=== PATIENT | male | born 1990 | race Caucasian/White ===

== ENCOUNTER 2016-07-19 06:15 | Emergency (ER) | payer SELFPAY ==
--- NOTE | 2016-07-19 06:53 | ER Document Report ---
ED General - General Mode of Arrival: Ambulatory Information source: Patient TRAVEL OUTSIDE OF THE [place] IN LAST 30 DAYS: No - HPI Patient complains to provider of: Abdominal, anal, and penile pain Associated symptoms: Other - see notes above <BEATRICE GARDUNO - Last Filed: 07/19/16 09:42> <APVAN ZENG - Last Filed: 07/19/16 10:32> - General Chief Complaint: Constipation Stated Complaint: CONSTIPATION,UNABLE TO URINATE Time Seen by Provider: 07/19/16 06:24 Notes: 26 year old male with history of GERD, anxiety, hemorrhoids, anal fissure, and chronic constipation presents to the ED complaining of abdominal, anal, and penile pain that started this morning. Patient reports that he "can't take the pain." Patient reports that he has not been able to void secondary to the pain. Patient hasn't had a bowel movement in 7 days, but reports the last time he had to strain excessively before anything passed. Patient sometimes takes medication to help move his bowels, but states that he takes it too late. ( BEATRICE GARDUNO) - Related Data Allergies/Adverse Reactions: cephalexin monohydrate [From Keflex] Allergy (Intermediate, Verified 01/20/16 11 :07) ciprofloxacin [Ciprofloxacin] Allergy (Intermediate, Verified 01/20/16 11:07) Penicillins Allergy (Intermediate, Verified 01/20/16 11:07) Past Medical History - General Information source: Patient - Social History Smoking Status: Current Every Day Smoker Frequency of alcohol use: None Drug Abuse: None Family History: CAD - mother, CVA - grandmother from, DM - grandma and grandpa, Hypertension - mother, Other - MS mother Pulmonary Medical History: Reports: Hx Pneumonia GI Medical History: Reports: Hx Gastroesophageal Reflux Disease, Hx Hiatal Hernia, Other - hemorrhoids and anal fissure Psychiatric Medical History: Reports: Hx Anxiety Past Surgical History: Reports: Hx Abdominal Surgery, Other - Throat biopsy - Immunizations Immunizations up to date: Yes Hx Diphtheria, Pertussis, Tetanus Vaccination: Yes - 2010 <BEATRICE GARDUNO - Last Filed: 07/19/16 09:42> Review of Systems - Review of Systems Constitutional: No symptoms reported EENT: No symptoms reported Cardiovascular: No symptoms reported Respiratory: No symptoms reported Gastrointestinal: See HPI, Abdominal pain, Constipation, Other - anal pain Genitourinary: See HPI, Retention Male Genitourinary: See HPI, Other - penile pain Musculoskeletal: No symptoms reported Skin: No symptoms reported Hematologic/Lymphatic: No symptoms reported Neurological/Psychological: No symptoms reported -: Yes All other systems reviewed and negative <BEATRICE AGRDUNO - Last Filed: 07/19/16 09:42> Physical Exam - General General appearance: Alert In distress: None - HEENT Head: Normocephalic, Atraumatic Eyes: Normal Extraocular movements intact: Yes Pupils: PERRL - Respiratory Respiratory status: No respiratory distress - Cardiovascular Rhythm: Regular - Abdominal Inspection: Normal Distension: No distension - Rectal Tenderness: Yes Hemorrhoids: None - Back Back: Normal - Extremities General upper extremity: Normal inspection, Normal ROM General lower extremity: Normal inspection, Normal ROM - Neurological Neuro grossly intact: Yes - Psychological Associated symptoms: Agitated - Skin Skin Temperature: Warm Skin Moisture: Dry Skin Color: Normal <BEATRICE GARDUNO - Last Filed: 07/19/16 09:42> <PAVAN ZENG - Last Filed: 07/19/16 10:32> - Vital signs Vitals: Temp Pulse Resp BP Pulse Ox 98.7 F 77 16 130/97 H 97 07/19/16 06:20 07/19/16 06:20 07/19/16 06:20 07/19/16 06:20 07/19/16 06:20 - Rectal Notes: Soft stool present around the anal area. Presence of skin tags, but no anal fissure or hemorrhoids present. (BEATRICE GARDUNO) Digital rectal exam shows firm stool in the rectum, attempts to break it up caused emotional crying, sobbing, and shaking all over. (PAVAN ZENG) Course - Laboratory Result Diagrams: 07/19/16 06:56 07/19/16 06:56 <BEATRICE GARDUNO - Last Filed: 07/19/16 09:42> - Laboratory Result Diagrams: 07/19/16 06:56 07/19/16 06:56 <PAVAN ZENG - Last Filed: 07/19/16 10:32> - Re-evaluation Re-evalutation: 07/19/16 10:29 The patient was given a small amount enema but would not hold it. He did pass one small piece of firm stool. After this, a digital rectal exam was done showing hard stool, he was unable to tolerate any attempts to break it up. After this he refused to allow any more the enema to be given. He is also unwilling to drink the mag citrate. (PAVAN ZENG) - Vital Signs Vital signs: Temp Pulse Resp BP Pulse Ox 98.7 F 77 16 130/97 H 97 07/19/16 06:20 07/19/16 06:20 07/19/16 06:20 07/19/16 06:20 07/19/16 06:20 - Laboratory Laboratory results interpreted by me: 07/19/16 07/19/16 06:56 06:56 WBC 15.5 H RBC 3.63 L Hgb 11.8 L Hct 34.8 L Plt Count 512 H Seg Neutrophils % 78.5 H Absolute Neutrophils 12.2 H Creatinine 0.51 L Discharge <BEATRICE GARDUNO - Last Filed: 07/19/16 09:42> <PAVAN ZENG - Last Filed: 07/19/16 10:32> - Discharge Clinical Impression: Constipation Qualifiers: Constipation type: unspecified constipation type Qualified Code(s): K59.00 - Constipation, unspecified Condition: Stable Disposition: HOME, SELF-CARE Additional Instructions: Constipation: Constipation is a common problem. It is especially likely as you get older. Constipation is a common cause of abdominal pain, but sometimes causes no symptoms at all. Causes of constipation include certain medications, dehydration, diets, inactivity, and low-fiber intake. Rarely, it can be a symptom of underlying disease. The physician has evaluated you for this. Avoid constipation by eating a diet high in fiber, fruits, and vegetables. Drink plenty of liquids. Get regular exercise. If possible, avoid constipating medicines like narcotic pain medication. Some vitamin tablets can cause constipation. Stool softeners may be needed for difficult cases. An excellent stool softener is Konsyl which is available at [facility], and [facility] drug store. Just add a teaspoon to a glass of pineapple or orange juice daily or twice a day if needed. Laxatives are useful for occasional constipation. You should use them only when necessary. Too-frequent use can make your bowels dependent on them. Some over the counter laxatives available without prescription are: Milk of Magnesia, 1-2 tablespoons twice a day Dulcolax, 5 mg pill or 10 mg suppository. Citrate of Magnesia, 4-5 ounces a day for a day or two For acute constipation, Fleet's Enemas and Dulcolax suppositories are helpful. Chronic, long term care social worker use of laxatives or enemas is not a good idea. Your bowel may become dependant on them. You do not need to have a bowel movement every day. Many people do fine with a bowel movement every three or four days. You should call your doctor or return for re-evaluation if you pass blood in the stool, or if you develop fever or increasing abdominal pain. //////////////////////////////////////////////////////////////////////////////// //////////////////////////////////////////////////////////////////////////////// ////////////////// Take 1 dose of MiraLAX every day. Drink lots of water every day. Drink 5 ounces of citrate of magnesia daily for the next 1-2 days. Follow-up with a local medical doctor if not improving. RETURN TO THE EMERGENCY ROOM IF ANY NEW OR WORSENING SYMPTOMS. Scribe Attestation: 07/19/16 10:32 I personally performed the services described in the documentation, reviewed and edited the documentation which was dictated to the scribe in my presence, and it accurately records my words and actions. (PAVAN ZENG) Scribe Documentation - Scribe Written by Rachel:: Rachel John, 07/19/2016 0708 acting as scribe for :: Jen <BEATRICE GARDUNO - Last Filed: 07/19/16 09:42>
[2016-07-19 07:15] LABS: ABSOLUTE BASOPHILS # (AUTO) 0.1 10^3/uL (0.0-0.2); ABSOLUTE EOSINOPHILS # (AUTO) 0.1 10^3/uL (0.0-0.6); ABSOLUTE LYMPHOCYTES (AUTO) 2.1 10^3/uL (0.5-4.7); ABSOLUTE MONOCYTES (AUTO) 1.1 10^3/uL (0.1-1.4); ABSOLUTE NEUT (AUTO) 12.2 10^3/uL (1.7-8.2); BASOPHILS % (AUTO) 0.4 % (0-2); EOSINOPHILS % (AUTO) 0.5 % (0-6); HEMATOCRIT 34.8 % (37.9-51.0); HEMOGLOBIN 11.8 g/dL (13.5-17.0); HGB HCT DIFFERENCE 0.6; LYMPHOCYTES % (AUTO) 13.4 % (13-45); MEAN CORPUSCULAR HEMOGLOBIN 32.4 pg (27.0-33.4); MEAN CORPUSCULAR HGB CONC 33.8 g/dL (32.0-36.0); MEAN CORPUSCULAR VOLUME 96 fl (80-97); MONOCYTES % (AUTO) 7.2 % (3-13); RED BLOOD COUNT 3.63 10^6/uL (4.35-5.55); RED CELL DISTRIBUTION WIDTH 13.1 % (11.5-14.0); SEGMENTED NEUTROPHILS % (AUTO) 78.5 % (42-78); WHITE BLOOD COUNT 15.5 10^3/uL (4.0-10.5)
[2016-07-19 07:27] LABS: ALANINE AMINOTRANSFERASE 34 U/L (21-72); ALBUMIN 3.7 g/dL (3.5-5.0); ALKALINE PHOSPHATASE 117 U/L (38-126); ANION GAP 11 (5-19); ASPARTATE AMINO TRANSFERASE 24 U/L (17-59); BILIRUBIN,DIRECT 0.4 mg/dL (0.0-0.4); BILIRUBIN,TOTAL 0.4 mg/dL (0.2-1.3); BLOOD UREA NITROGEN 10 mg/dL (7-20); CALCIUM 9.5 mg/dL (8.4-10.2); CARBON DIOXIDE 28 mmol/L (22-30); CHLORIDE 103 mmol/L (98-107); CREATININE RESULT 0.51 mg/dL (0.52-1.25); GLUCOSE 98 mg/dL (75-110); POTASSIUM 4.4 mmol/L (3.6-5.0); SODIUM 141.5 mmol/L (137-145)
[2016-07-19 07:34] LABS: APPEARANCE,URINE CLEAR; BILIRUBIN,URINE NEGATIVE (NEGATIVE); GLUCOSE, URINE NEGATIVE (NEGATIVE); KETONES,URINE NEGATIVE (NEGATIVE); LEUKOCYTE ESTERASE,URINE NEGATIVE (NEGATIVE); NITRITE,URINE NEGATIVE (NEGATIVE); PROTEIN,URINE NEGATIVE (NEGATIVE); URINE SPECIFIC GRAVITY 1.014; UROBILINOGEN,URINE NEGATIVE mg/dL (<2.0)
[2016-07-19] MEDS ORDERED: MORPHINE SULFATE 10 MG/ML INJ IM ONE (08:01)
[2016-07-19] MEDS ORDERED: DIPHENHYDRAMINE HCL 50 MG/ML VIAL IM ONE (08:01)
[2016-07-19] MEDS ORDERED: MINERAL OIL 30 ML UDCUP PR ONE (08:02)
[2016-07-19] MEDS ORDERED: MAGNESIUM CITRATE 296 ML BOTTLE PO ONE (08:40)
[2016-07-19 11:07] VITALS: BP 148/93
== END 2016-07-19 10:58 | disposition home or self-care (01) ==
LOC: ER 06:15
DX: K59.00 Constipation, unspecified (principal); R10.9 Unspecified abdominal pain; N48.89 Other specified disorders of penis; K62.89 Other specified diseases of anus and rectum; R33.9 Retention of urine, unspecified; K64.4 Residual hemorrhoidal skin tags; Z88.1 Allergy status to other antibiotic agents; Z88.0 Allergy status to penicillin; F17.200 Nicotine dependence, unspecified, uncomplicated
CPT/HCPCS: 99284; 96372; 96374; 36415; 85025; 80053; 81001; 74022; J3490 ×2; J1200; J2270

== ENCOUNTER 2017-04-09 22:47 | Emergency (ER) | payer SELFPAY ==
--- NOTE | 2017-04-10 00:39 | ER Document Report ---
ED Medical Screen (RME) - General Chief Complaint: Drug Abuse Stated Complaint: VOMITING,DETOX Time Seen by Provider: 04/10/17 00:35 Mode of Arrival: Ambulatory Information source: Patient Notes: hostile pt from prison since Wednesday "detoxing" from opioids, methamphetamines and benzos. c/o vomiting blood. has not vomited here. TRAVEL OUTSIDE OF THE [place] IN LAST 30 DAYS: No - Related Data Allergies/Adverse Reactions: cephalexin monohydrate [From Keflex] Allergy (Intermediate, Verified 01/20/16 11 :07) ciprofloxacin [Ciprofloxacin] Allergy (Intermediate, Verified 01/20/16 11:07) Penicillins Allergy (Intermediate, Verified 01/20/16 11:07) Past Medical History - General Information source: Patient - Social History Frequency of alcohol use: Occasional Drug Abuse: Methamphetamine Pulmonary Medical History: Reports: Hx Pneumonia Renal/ Medical History: Denies: Hx Peritoneal Dialysis GI Medical History: Reports: Hx Gastroesophageal Reflux Disease, Hx Hiatal Hernia Psychiatric Medical History: Reports: Hx Anxiety Past Surgical History: Reports: Hx Abdominal Surgery, Other - Throat biopsy - Immunizations Immunizations up to date: Yes Hx Diphtheria, Pertussis, Tetanus Vaccination: Yes - 2010 Review of Systems - Review of Systems Gastrointestinal: See HPI Neurological/Psychological: See HPI Physical Exam - Vital signs Vitals: Temp Pulse Resp BP Pulse Ox 98.6 F 83 20 103/63 99 04/09/17 22:55 04/09/17 22:55 04/09/17 22:55 04/09/17 22:55 04/09/17 22:55 - Notes Notes: PHYSICAL EXAMINATION: GENERAL: hostile, in no acute distress. NEUROLOGICAL: Cranial nerves grossly intact. Normal sensory/motor exams. PSYCH: hostile, spitting on staff Course - Vital Signs Vital signs: Temp Pulse Resp BP Pulse Ox 98.6 F 83 20 103/63 99 04/09/17 22:55 04/09/17 22:55 04/09/17 22:55 04/09/17 22:55 04/09/17 22:55
[2017-04-10 01:39] LABS: ABSOLUTE LYMPHOCYTES (AUTO) 3.9 10^3/uL (0.5-4.7); ABSOLUTE MONOCYTES (AUTO) 1.8 10^3/uL (0.1-1.4); ABSOLUTE NEUT (AUTO) 6.1 10^3/uL (1.7-8.2); BASOPHILS % (AUTO) 0.4 % (0-2); HEMATOCRIT 38.6 % (37.9-51.0); HEMOGLOBIN 13.2 g/dL (13.5-17.0); LYMPHOCYTES % (AUTO) 32.7 % (13-45); MEAN CORPUSCULAR HEMOGLOBIN 29.5 pg (27.0-33.4); MEAN CORPUSCULAR HGB CONC 34.1 g/dL (32.0-36.0); MEAN CORPUSCULAR VOLUME 87 fl (80-97); MONOCYTES % (AUTO) 15.2 % (3-13); PLATELET COUNT 540 10^3/uL (150-450); RED BLOOD COUNT 4.46 10^6/uL (4.35-5.55); RED CELL DISTRIBUTION WIDTH 15.3 % (11.5-14.0); SEGMENTED NEUTROPHILS % (AUTO) 51.7 % (42-78); TOTAL CELLS COUNTED % (AUTO) 100 %; WHITE BLOOD COUNT 11.8 10^3/uL (4.0-10.5)
[2017-04-10 01:49] LABS: ALANINE AMINOTRANSFERASE 145 U/L (21-72); ALBUMIN 4.9 g/dL (3.5-5.0); ALKALINE PHOSPHATASE 150 U/L (38-126); ANION GAP 17 (5-19); ASPARTATE AMINO TRANSFERASE 122 U/L (17-59); BILIRUBIN,DIRECT 0.2 mg/dL (0.0-0.4); BILIRUBIN,TOTAL 0.8 mg/dL (0.2-1.3); BLOOD UREA NITROGEN 28 mg/dL (7-20); CALCIUM 9.3 mg/dL (8.4-10.2); CARBON DIOXIDE 33 mmol/L (22-30); CHLORIDE 91 mmol/L (98-107); GLUCOSE 119 mg/dL (75-110); LIPASE 371.4 U/L (23-300); POTASSIUM 3.3 mmol/L (3.6-5.0); SODIUM 140.5 mmol/L (137-145); TOTAL PROTEIN 8.3 g/dL (6.3-8.2)
[2017-04-10 01:58] LABS: AMORPHOUS SEDIMENT,URINE TRACE /HPF; APPEARANCE,URINE CLEAR; BILIRUBIN,URINE NEGATIVE (NEGATIVE); COLOR,URINE YELLOW; GLUCOSE, URINE NEGATIVE (NEGATIVE); KETONES,URINE NEGATIVE (NEGATIVE); LEUKOCYTE ESTERASE,URINE NEGATIVE (NEGATIVE); NITRITE,URINE NEGATIVE (NEGATIVE); PROTEIN,URINE 30 mg/dL (NEGATIVE)
[2017-04-10] MEDS ORDERED: NORMAL SALINE 1000 ML 1,000 ML IV ONE (02:26)
[2017-04-10] MEDS ORDERED: ONDANSETRON HCL INJ/PF 4 MG/2 ML SDV IV ONE (02:28)
[2017-04-10 02:42] LABS: URINE AMPHETAMINES SCREEN UNCONFIRMED POSITIVE; URINE BARBITURATES SCREEN NEGATIVE; URINE BENZODIAZEPINES SCREEN NEGATIVE; URINE COCAINE SCREEN UNCONFIRMED POSITIVE; URINE MARIJUANA (THC) SCREEN UNCONFIRMED POSITIVE; URINE METHADONE SCREEN NEGATIVE; URINE PHENCYCLIDINE SCREEN NEGATIVE
--- NOTE | 2017-04-10 02:56 | ER Document Report ---
ED Substance Abuse / Acc. OD - General Chief Complaint: Drug Abuse Stated Complaint: VOMITING,DETOX Time Seen by Provider: 04/10/17 00:35 Mode of Arrival: Ambulatory Information source: Patient Notes: Patient is a 26-year-old male who presents to the ER today because he says he is detoxing off of heroin, Xanax, meth. Patient was arrested 2 days ago and has not been able to do any of these drugs since that time. He admits to multiple episodes of vomiting, with one episode of vomiting prior to arrival with blood streaks in it. He admits to nausea, abdominal pain, body aches. Patient is combative and spitting on staff. TRAVEL OUTSIDE OF THE [place] IN LAST 30 DAYS: No - Related Data Allergies/Adverse Reactions: cephalexin monohydrate [From Keflex] Allergy (Intermediate, Verified 01/20/16 11 :07) ciprofloxacin [Ciprofloxacin] Allergy (Intermediate, Verified 01/20/16 11:07) Penicillins Allergy (Intermediate, Verified 01/20/16 11:07) Past Medical History - General Information source: Patient - Social History Smoking Status: Current Every Day Smoker Frequency of alcohol use: Occasional Drug Abuse: Methamphetamine Family History: CAD - mother, CVA - grandmother from, DM - grandma and grandpa, Hypertension - mother, Other - MS mother Patient has suicidal ideation: No Patient has homicidal ideation: No Pulmonary Medical History: Reports: Hx Pneumonia Renal/ Medical History: Denies: Hx Peritoneal Dialysis GI Medical History: Reports: Hx Gastroesophageal Reflux Disease, Hx Hiatal Hernia Psychiatric Medical History: Reports: Hx Anxiety Past Surgical History: Reports: Hx Abdominal Surgery, Other - Throat biopsy - Immunizations Immunizations up to date: Yes Hx Diphtheria, Pertussis, Tetanus Vaccination: Yes - 2010 Review of Systems - Review of Systems Constitutional: No symptoms reported EENT: No symptoms reported Cardiovascular: No symptoms reported Respiratory: No symptoms reported Gastrointestinal: See HPI Genitourinary: No symptoms reported Male Genitourinary: No symptoms reported Musculoskeletal: No symptoms reported Skin: No symptoms reported Hematologic/Lymphatic: No symptoms reported Neurological/Psychological: See HPI Physical Exam - Vital signs Vitals: Temp Pulse Resp BP Pulse Ox 98.6 F 83 20 103/63 99 04/09/17 22:55 04/09/17 22:55 04/09/17 22:55 04/09/17 22:55 04/09/17 22:55 - Notes Notes: PHYSICAL EXAMINATION: GENERAL: Disheveled, in no acute distress. HEAD: Atraumatic, normocephalic. EYES: Pupils equal round and reactive to light, extraocular movements intact, sclera anicteric, conjunctiva are normal. NECK: Normal range of motion, supple without lymphadenopathy LUNGS: CTAB and equal. No wheezes rales or rhonchi. HEART: Regular rate and rhythm without murmurs ABDOMEN: Soft, no tenderness. No guarding, no rebound BACK: no vertebral tenderness, normal ROM GI/: no CVA tenderness EXTREMITIES: Normal range of motion, no pitting edema. No cyanosis. NEUROLOGICAL: Cranial nerves grossly intact. Normal sensory/motor exams. PSYCH: Normal mood, normal affect. SKIN: Warm, Dry, normal turgor, no rashes or lesions noted Course - Re-evaluation Re-evalutation: 04/10/17 05:48 Vital signs are all within normal limits, patient is not diaphoretic and appears to be in no acute distress. Patient requesting Percocet. Liver enzymes are elevated today, however patient has no abdominal pain on exam, hepatitis panel is pending at this time. Other lab work is unremarkable today. I will treat patient for drug withdrawals with gabapentin and Phenergan. - Vital Signs Vital signs: Temp Pulse Resp BP Pulse Ox 98.5 F 64 17 106/57 L 99 04/10/17 05:24 04/10/17 05:24 04/10/17 05:24 04/10/17 05:24 04/10/17 05:24 - Laboratory Result Diagrams: 04/10/17 01:21 04/10/17 01:21 Laboratory results interpreted by me: 04/10/17 04/10/17 04/10/17 00:30 01:21 01:21 WBC 11.8 H Hgb 13.2 L RDW 15.3 H Plt Count 540 H Monocytes % 15.2 H Absolute Monocytes 1.8 H Potassium 3.3 L Chloride 91 L Carbon Dioxide 33 H BUN 28 H Glucose 119 H AST 122 H ALT 145 H Alkaline Phosphatase 150 H Total Protein 8.3 H Lipase 371.4 H Urine Protein 30 H Urine Urobilinogen 4.0 H Acetaminophen 04/10/17 01:21 WBC Hgb RDW Plt Count Monocytes % Absolute Monocytes Potassium Chloride Carbon Dioxide BUN Glucose AST ALT Alkaline Phosphatase Total Protein Lipase Urine Protein Urine Urobilinogen Acetaminophen < 10 L Discharge - Discharge Clinical Impression: Heroin dependence, Cocaine abuse, Benzodiazepine abuse, Methamphetamine abuse Condition: Stable Disposition: HOME, SELF-CARE Additional Instructions: Return immediately for any new or worsening symptoms. Prescriptions: Gabapentin 100 mg PO ASDIR #84 capsule Promethazine HCl [Phenergan 25 mg Tablet] 1 tab PO Q6H PRN #15 tablet PRN Reason:
[2017-04-10] MEDS ORDERED: PROMETHAZINE HCL 25 MG TABLET PO ONE (02:57)
[2017-04-10] MEDS ORDERED: GABAPENTIN 100 MG CAPSULE PO ONE (02:57)
[2017-04-10 05:26] VITALS: BP 106/57
== END 2017-04-10 05:24 | disposition home or self-care (01) ==
LOC: ER 22:47
DX: F19.10 Other psychoactive substance abuse, uncomplicated (principal); F14.10 Cocaine abuse, uncomplicated; F17.200 Nicotine dependence, unspecified, uncomplicated; R11.10 Vomiting, unspecified; Z88.3 Allergy status to other anti-infective agents; Z88.0 Allergy status to penicillin
CPT/HCPCS: 99284; 96361; 96374; 36415; 83690; 80307 ×2; 85025; 80053; 81001; J2405; J7030

== ENCOUNTER 2017-09-20 04:13 | Emergency (ER) | payer SELFPAY ==
[2017-09-20] MEDS ORDERED: BUPIVACAINE HCL 0.5 % INJ/PF 30 ML SDV INJ ONE (05:04)
[2017-09-20] MEDS ORDERED: IBUPROFEN 800 MG TABLET PO ONE (05:05)
[2017-09-20] MEDS ORDERED: CLINDAMYCIN HCL 150 MG CAPSULE PO ONE (05:05)
[2017-09-20] MEDS ORDERED: ACETAMINOPHEN 325 MG TABLET PO ONE (05:05)
--- NOTE | 2017-09-20 05:43 | ER Document Report ---
ED General - General Chief Complaint: Toothache Stated Complaint: TOOTHACHE Time Seen by Provider: 09/20/17 04:31 Mode of Arrival: Ambulatory Information source: Patient Notes: Patient presents with chief complaint of dental pain x3 days. Patient reports that he is having pain on the left lower side of his mouth to tooth #17 and 18. Patient denies any fever. TRAVEL OUTSIDE OF THE [place] IN LAST 30 DAYS: No - Related Data Allergies/Adverse Reactions: cephalexin monohydrate [From Keflex] Allergy (Intermediate, Verified 01/20/16 11 :07) ciprofloxacin [Ciprofloxacin] Allergy (Intermediate, Verified 01/20/16 11:07) Penicillins Allergy (Intermediate, Verified 01/20/16 11:07) Past Medical History - General Information source: Patient - Social History Smoking Status: Current Every Day Smoker Frequency of alcohol use: None Drug Abuse: None Family History: CAD - mother, CVA - grandmother from, DM - grandma and grandpa, Hypertension - mother, Other - MS mother Pulmonary Medical History: Reports: Hx Pneumonia Renal/ Medical History: Denies: Hx Peritoneal Dialysis GI Medical History: Reports: Hx Gastroesophageal Reflux Disease, Hx Hiatal Hernia Psychiatric Medical History: Reports: Hx Anxiety Past Surgical History: Reports: Hx Abdominal Surgery, Other - Throat biopsy - Immunizations Immunizations up to date: Yes Hx Diphtheria, Pertussis, Tetanus Vaccination: Yes - 2010 Review of Systems - Review of Systems Constitutional: No symptoms reported EENT: See HPI Cardiovascular: No symptoms reported Respiratory: No symptoms reported Gastrointestinal: No symptoms reported Genitourinary: No symptoms reported Male Genitourinary: No symptoms reported Musculoskeletal: No symptoms reported Skin: No symptoms reported Hematologic/Lymphatic: No symptoms reported Neurological/Psychological: No symptoms reported Physical Exam - Vital signs Vitals: Temp Pulse Resp BP Pulse Ox 98.8 F 100 16 138/85 H 100 09/20/17 04:17 09/20/17 04:17 09/20/17 04:17 09/20/17 04:17 09/20/17 04:17 - Notes Notes: PHYSICAL EXAMINATION: GENERAL: Well-appearing, well-nourished and in no acute distress. HEAD: Atraumatic, normocephalic. EYES: Pupils equal round and reactive to light, extraocular movements intact, sclera anicteric, conjunctiva are normal. ENT: Nares patent, oropharynx clear without exudates. Moist mucous membranes. Multiple dental caries noted throughout mouth as well as majority of his teeth missing. Mild erythema without swelling noted to left lower gumline. NECK: Normal range of motion, supple without lymphadenopathy LUNGS: Breath sounds clear to auscultation bilaterally and equal. No wheezes rales or rhonchi. HEART: Regular rate and rhythm without murmurs Musculoskeletal: Normal range of motion, no pitting or edema. No cyanosis. NEUROLOGICAL: Cranial nerves grossly intact. Normal speech, normal gait. Normal sensory, motor exams SKIN: Warm, Dry, normal turgor, no rashes or lesions noted. Course - Re-evaluation Re-evalutation: Patient has multiple dental caries throughout his entire mouth, minor inflammation noted along the gumline. No drainable abscess identified. Patient was offered a dental block which initially agreed to before he declined. Patient will be started on clindamycin as he is allergic to penicillin. Patient will be given contact information for the [facility] patient reports he does not have any dental insurance. Patient instructed to take ibuprofen 600 mg every 6 hours for his pain. - Vital Signs Vital signs: Temp Pulse Resp BP Pulse Ox 98.8 F 100 16 138/85 H 100 09/20/17 04:17 09/20/17 04:17 09/20/17 04:17 09/20/17 04:17 09/20/17 04:17 Discharge - Discharge Clinical Impression: Toothache, Dental caries Condition: Stable Disposition: HOME, SELF-CARE Instructions: Clindamycin (OM) Additional Instructions: Toothache Your pain is due to dental decay. The tooth must be repaired in order for you to feel better. You will, therefore, be referred to a dentist. Severe swelling or drainage around a tooth usually means a deep dental abscess. This also requires evaluation and treatment by the dentist, but antibiotics may be prescribed while awaiting dental treatment. You should be rechecked immediately if you develop major swelling of the face, increasing pain, a lump in the jaw or gums, headache, or fever. Please take antibiotics as prescribed. Take ibuprofen or tylenol as need for pain. Call the [facility] at [phone] Prescriptions: Clindamycin HCl 300 mg PO TID #30 capsule
[2017-09-20 06:27] VITALS: BP 127/87
== END 2017-09-20 06:27 | disposition home or self-care (01) ==
LOC: ER 04:13
DX: K02.9 Dental caries, unspecified (principal); K05.10 Chronic gingivitis, plaque induced; K08.89 Other specified disorders of teeth and supporting structures; F17.200 Nicotine dependence, unspecified, uncomplicated; Z88.1 Allergy status to other antibiotic agents; Z88.0 Allergy status to penicillin
CPT/HCPCS: 99282